=== PATIENT | female | born 1980 | race African-American/Black ===

== ENCOUNTER 2016-08-23 00:38 | Emergency (ER) | payer OTHER ==
[2016-08-23] MEDS ORDERED: ATIVAN0.5 M1 PO (00:48)
[2016-08-23] MEDS ORDERED: FERROUS SULFAT325 MG PO (00:49)
[2016-08-23] MEDS ORDERED: CIPRO PO (00:49)
[2016-08-23] MEDS ORDERED: LEVOTHYROXINE100 MCG PO (00:50)
[2016-08-23] MEDS ORDERED: ZOLPIDEM TARTRAT5 M1 PO (00:50)
[2016-08-23] MEDS ORDERED: ZYRTEC10 M1 PO (00:50)
[2016-08-23 01:25] LABS: URINE SOURCE CLEAN CATCH
[2016-08-23 01:27] LABS: URINE APPEARANCE SL CLOUDY; URINE BILIRUBIN NEG (NEG); URINE BLOOD 3+ (NEG); URINE COLOR RED; URINE GLUCOSE NEG (NORM); URINE KETONE TRACE (NEG); URINE LEUKOCYTE ESTERASE TRACE (NEG); URINE NITRATE NEG (NEG); URINE PROTEIN 2+ (NEG); URINE SPECIFIC GRAVITY >=1.030 (1.003-1.035)
[2016-08-23 01:33] LABS: BASOPHIL# 0.1 X10e3 (0-0.3); EOSINOPHIL# 0.1 X10e3 (0-0.7); EOSINOPHIL% 0.7 % (0.0-7.0); HEMATOCRIT 33.9 % (35.0-45.0); LYMPHOCYTE# 1.8 X10e3 (1.0-3.5); LYMPHOCYTE% 25.1 % (17.0-45.0); MEAN CELL VOLUME 65.2 FL (83-96); MEAN CORPUSCULAR HEMOGLOBIN 21.1 PG (28-34); MEAN CORPUSCULAR HGB CONC 32.5 g/dL (30-36); MEAN PLATELET VOLUME 7.1 FL (6.5-11.5); MONOCYTE# 0.7 X10e3 (0-1.0); MONOCYTE% 9.6 % (3.0-12.0); NEUTROPHIL# 4.6 X10e3 (1.5-7.1); NEUTROPHIL% 63.6 % (40-75); PLATELET COUNT 408 X10e3 (140-420); RED BLOOD COUNT 5.21 X10e (3.90-5.30); RED CELL DISTRIBUTION WIDTH 16.4 % (11.0-15.5); WHITE BLOOD COUNT 7.2 X10e3 (4.0-10.5)
[2016-08-23 01:33] LABS: MICRO INDICATED? YES
[2016-08-23 01:34] LABS: DIFF IND NO
[2016-08-23 01:35] LABS: URINE RBC INNUM /[HPF] (0-2)
[2016-08-23 01:36] LABS: CULTURE INDICATED? NO; URINE BACTERIA NEG (NEG); URINE SQUAMOUS EPITHELIAL CELL OCCAS /[HPF]
== END 2016-08-23 02:47 | disposition home or self-care (01) ==
LOC: SED 00:38
PROVIDERS: Emergency Medicine
DX: I95.1 Orthostatic hypotension (principal); K21.9 Gastro-esophageal reflux disease without esophagitis
CPT/HCPCS: 36415; 81003; 84703; 85025; 96360; 99284